=== PATIENT | male | born 1945 | race Caucasian/White ===

== ENCOUNTER 2016-05-24 08:49 | Emergency (ER) | payer OTHER ==
[2016-05-24 08:55] VITALS: TEMP 98.4
[2016-05-24] MEDS ORDERED: ONDANSETRON 4 MG/2 ML VIAL IVP ONE (08:56)
--- NOTE | 2016-05-24 09:08 | EDPHY ---
H & P Stated Complaint: NAUSEA, DIZZYNESS, R SIDED NUMBNESS STARTING LAST NIGHT AT 2300 Time Seen by Provider: 05/24/16 08:59 HPI/ROS: CHIEF COMPLAINT: Right-sided numbness, dizziness. HISTORY OF PRESENT ILLNESS: This is a 70-year-old male with a history of previous CVA presenting via EMS. Last night he and his flew in from [place] and drove to their hotel, arriving around 2230. On arrival he developed dizziness, nausea, and then right-sided numbness. The numbness is from the top of his head to the bottom of his foot. He denies weakness. His notes ataxic gait this morning when he tried to go to the bathroom. He does report these symptoms as being identical to his previous stroke. No fever, chills, chest pain, shortness of breath, palpitations, vomiting, diarrhea, urinary complaints. He is anticoagulated on Plavix and a daily baby aspirin. EMS administered 4mg PO Zofran en route. Patient reports a history of a basilar artery occlusion resulting stroke in 2013. At that time, they were told basilar artery was 100% occluded it was non operative. REVIEW OF SYSTEMS: Aside from elements discussed in the HPI, a comprehensive 10-point review of systems was reviewed and is negative. PAST MEDICAL HISTORY: Basilar artery occlusion, CVA, hypertension. SOCIAL HISTORY: Visiting from [place], former smoker. VITAL SIGNS: Reviewed by me, BP 184/101. GENERAL: Well-developed, well-nourished, uncomfortable-appearing. Complaining of dizziness and nausea while lying in bed. HEENT: Atraumatic. Eyes: PERRL, EOMI, nystagmus with lateral gaze, worse on left. No icterus. No injection. Mouth: moist mucous membranes. No erythema or lesions. Neck: No meningitis. Nontender to palpation. No adenopathy. Negative Kernig's. Negative Brudzinski's. No meningismus. LUNGS: Clear to auscultation bilaterally, no wheezes, rhonchi or rales. CARDIAC: Regular rate and rhythm, no rubs, murmurs or gallops. ABDOMEN: Soft, nontender, nondistended, bowel sounds normal. BACK: No CVA tenderness. EXTREMITIES: No trauma. No edema. Range of motion is normal throughout. NEURO: Alert and oriented, Motor strength 5 over 5 in all major muscle groups. Sensation intact to light touch. Normal [id number]. [id number] normal except for being slightly wobbly. SKIN: Warm and dry, no rash. PSYCHIATRIC: Normal mentation, no agitation. Portions of this note were transcribed by a medical record assistant. I personally performed a history, physical exam, medical decision making, and confirmed accuracy of information the transcribed note. Source: Patient Exam Limitations: No limitations - Personal History Current Tetanus/Diphtheria Vaccine: Unsure - Medical/Surgical History Hx Asthma: No Hx Chronic Respiratory Disease: No Hx Diabetes: No Hx Cardiac Disease: No Hx Renal Disease: No Hx Cirrhosis: No Hx Alcoholism: No Hx HIV/AIDS: No Hx Splenectomy or Spleen Trauma: No Other PMH: CVA (L SIDED NUMBESS DEFICIT), HTN - Social History Smoking Status: Never smoked Constitutional: Initial Vital Signs Temperature (C) 36.9 C 05/24/16 08:53 Heart Rate 56 L 05/24/16 08:53 Respiratory Rate 16 05/24/16 08:53 Blood Pressure 184/101 H 05/24/16 08:53 O2 Sat (%) 92 05/24/16 08:53 O2 Delivery Mode Nasal Cannula O2 (L/minute) 2 Allergies/Adverse Reactions: No Known Allergies Allergy (Unverified 05/24/16 08:53) Home Medications: Medication Instructions Recorded Baclofen 05/24/16 Benicar 05/24/16 Plavix 05/24/16 Medical Decision Making - Diagnostics EKG Interpretation: 12-LEAD EKG: Please see the full report in [facility]. My interpretation: Normal sinus rhythm Imaging: Study: CT/CTA of the head/ and neck. Indication: Neurological. Results: Impression: 1. Occluded right vertebral artery at the origin and skull base with minimal trickle of contrast in the mid portion of the vertebral artery extending from C4 to C2. 2. Occluded distal left vertebral artery at the ring of C1 and skull base. 3. Widely patent bilateral posterior communicating arteries feeding the patent basilar artery, bilateral posterior cerebral, bilateral superior cerebellar, bilateral inferior anterior cerebellar and posterior inferior cerebellar arteries. 4. Moderate (50-60% stenosis) origin right internal carotid artery due to circumferential calcified and noncalcified plaque. 5. Widely patent left carotid artery The study was read by the radiologist, Dr. Pena. I viewed the images myself on the PACS system. Results: CT scan of the head was obtained. I viewed the images independently on the PACS system. I discussed the results of the study with the radiologist. Impression: No intracranial hemorrhage. Please see the full radiology report. The study was read by the radiologist, Dr. Pena. I viewed the images myself on the PACS system. ED Course/Re-evaluation: An IV was established and labs ordered. EKG obtained. Head CT and CT angiogram head and neck ordered. Chest x-ray ordered. 4mg IV Zofran administered for continued nausea. 0920: Patient sent to CT for imaging. 1020: Head CT results conveyed to me by radiology. 1023: Consulted with Dr. Moore of [facility]. She recommends the patient be flown to [facility]. 1043: Reassessed patient. I discussed transfer to [facility] with the family. Dr. Moore of [facility] consulted with the patient via the stroke robot. [facility] was notified. Differential Diagnosis: Differential diagnoses the patient's presenting complaints was considered including but not limited to intracranial injury, TIA, ischemic cerebrovascular accident, hemorrhagic stroke, thrombotic stroke, dissection, hypoglycemia, complex migraine, metastases, tumor, seizure, or electrolyte abnormality Critical Care Time: I spent a total of 45 minutes of critical care time in obtaining history, performing a physical exam, bedside monitoring of interventions, collecting and interpreting tests and discussion with consultants but not including time spent performing procedures. - Data Points Laboratory Results: Laboratory Results 05/24/16 08:50 05/24/16 08:50 05/24/16 05/24/16 05/24/16 08:52 08:50 08:50 WBC RBC Hgb POC Hgb 17.3 gm/dL gm/dL (14.5-17.3) Hct POC Hct 51 % H % (42.8-50.6) MCV MCH MCHC RDW Plt Count MPV Neut % (Auto) Lymph % (Auto) [place] % (Auto) Eos % (Auto) Baso % (Auto) Nucleat RBC Rel Count Absolute Neuts (auto) Absolute Lymphs (auto) Absolute Monos (auto) Absolute Eos (auto) Absolute Basos (auto) Absolute Nucleated RBC Immature Gran % Immature Gran # PT 12.6 SEC SEC (12.0-15.0) INR 0.95 (0.83-1.16) POC Sodium 141 mEq/L mEq/L (134-144) Sodium 141 mEq/L mEq/L (134-144) POC Potassium 4.2 mEq/L mEq/L (3.3-5.0) Potassium 4.6 mEq/L mEq/L (3.5-5.2) POC Chloride 104 mEq/L mEq/L (96-108) Chloride 105 mEq/L mEq/L (97-110) Carbon Dioxide 27 mEq/l mEq/l (22-31) Anion Gap 9 mEq/L mEq/L (8-16) POC BUN 18 mg/dL mg/dL (7-23) BUN 17 mg/dL mg/dL (7-23) Creatinine 1.0 mg/dL mg/dL (0.7-1.3) POC Creatinine 1.0 mg/dL mg/dL (0.8-1.5) Estimated GFR > 60 Glucose 128 mg/dL H mg/dL (70-100) POC Glucose 131 mg/dL H mg/dL (70-100) Calcium 10.0 mg/dL mg/dL (8.5-10.4) Troponin I < 0.012 ng/mL ng/mL (0-0.034) 05/24/16 08:50 WBC 6.78 10^3/uL 10^3/uL (3.80-9.50) RBC 5.64 10^6/uL 10^6/uL (4.40-6.38) Hgb 17.5 g/dL g/dL (13.7-17.5) POC Hgb Hct 50.3 % % (40.0-51.0) POC Hct MCV 89.2 fL fL (81.5-99.8) MCH 31.0 pg pg (27.9-34.1) MCHC 34.8 g/dL g/dL (32.4-36.7) RDW 13.0 % % (11.5-15.2) Plt Count 152 10^3/uL 10^3/uL (150-400) MPV 10.1 fL fL (8.7-11.7) Neut % (Auto) 71.7 % % (39.3-74.2) Lymph % (Auto) 20.4 % % (15.0-45.0) [place] % (Auto) 6.3 % % (4.5-13.0) Eos % (Auto) 0.9 % % (0.6-7.6) Baso % (Auto) 0.4 % % (0.3-1.7) Nucleat RBC Rel Count 0.0 % % (0.0-0.2) Absolute Neuts (auto) 4.86 10^3/uL 10^3/uL (1.70-6.50) Absolute Lymphs (auto) 1.38 10^3/uL 10^3/uL (1.00-3.00) Absolute Monos (auto) 0.43 10^3/uL 10^3/uL (0.30-0.80) Absolute Eos (auto) 0.06 10^3/uL 10^3/uL (0.03-0.40) Absolute Basos (auto) 0.03 10^3/uL 10^3/uL (0.02-0.10) Absolute Nucleated RBC 0.00 10^3/uL 10^3/uL (0-0.01) Immature Gran % 0.3 % % (0.0-1.1) Immature Gran # 0.02 10^3/uL 10^3/uL (0.00-0.10) PT INR POC Sodium Sodium POC Potassium Potassium POC Chloride Chloride Carbon Dioxide Anion Gap POC BUN BUN Creatinine POC Creatinine Estimated GFR Glucose POC Glucose Calcium Troponin I Medications Given: Discontinued Medications Lorazepam (Ativan Injection) 1 mg IVP EDNOW ONE Stop: 05/24/16 09:36 Last Admin: 05/24/16 09:45 Dose: 1 mg Ondansetron HCl (Zofran) 4 mg IVP EDNOW ONE Stop: 05/24/16 08:57 Last Admin: 05/24/16 09:01 Dose: 4 mg Point of Care Test Results: 05/24/16 08:52 POC Sodium 141 POC Potassium 4.2 POC Chloride 104 POC BUN 18 POC Creatinine 1.0 POC Glucose 131 H Departure - Departure Disposition: Acute Care Hospital Not [facility] Clinical Impression: CVA (cerebral vascular accident) Qualifiers: CVA mechanism: thrombosis Precerebral and cerebral artery: vertebral artery Laterality of affected vessel: left Qualified Code(s): 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 I personally performed a history, physical exam, medical decision making, and confirmed accuracy of information the transcribed note.
[2016-05-24] MEDS ORDERED: IOPAMIDOL (ISOVUE 370) 100 ML BTL IV ONE (09:16)
[2016-05-24 09:18] LABS: % IMMATURE GRANULYOCYTES 0.3 % (0.0-1.1); ABSOLUTE IMMATURE GRANULOCYTES 0.02 10^3/uL (0.00-0.10); ADD DIFF? NO; ADD MORPH? NO; ADD SCAN? NO; ATYPICAL LYMPHOCYTE FLAG 0 (0-99); FRAGMENT RBC FLAG 0 (0-99); HEMATOCRIT 50.3 % (40.0-51.0); HEMOGLOBIN 17.5 g/dL (13.7-17.5); LEFT SHIFT FLG 0 (0-99); LIPEMIA HEMOLYSIS FLAG 90 (0-99); MEAN CELL HEMOGLOBIN CONCENTR. 34.8 g/dL (32.4-36.7); MEAN CELL VOLUME 89.2 fL (81.5-99.8); MEAN PLATELET VOLUME 10.1 fL (8.7-11.7); PLATELET CLUMPS FLAG 10 (0-99); PLATELET COUNT 152 10^3/uL (150-400); RED BLOOD CELL COUNT 5.64 10^6/uL (4.40-6.38)
--- NOTE | 2016-05-24 09:25 | CPEKG ---
Heart Rate: 56 RR Interval: 1071 P-R Interval: 184 QRSD Interval: 94 QT Interval: 436 QTC Interval: 421 P [place]: 40 QRS [place]: 30 T Wave [place]: 79 EKG Severity - NORMAL ECG - EKG Impression: SINUS RHYTHM Electronically Signed By: Christie Cisse 24-May-2016 17:53:00
[2016-05-24 09:31] LABS: ANION GAP 9 mEq/L (8-16); CARBON DIOXIDE 27 mEq/l (22-31); CHLORIDE 105 mEq/L (97-110); GLOMERULAR FILTRATION RATE > 60; GLUCOSE 128 mg/dL (70-100); POTASSIUM 4.6 mEq/L (3.5-5.2); SODIUM 141 mEq/L (134-144)
[2016-05-24] MEDS ORDERED: LORazepam 2 MG/ML INJ IVP ONE (09:35)
[2016-05-24 09:40] LABS: INR 0.95 (0.83-1.16); PROTIME(PATIENT) 12.6 SEC (12.0-15.0)
[2016-05-24 09:43] LABS: TROPONIN I < 0.012 ng/mL (0-0.034)
[2016-05-24 10:34] VITALS: PULSE 59; RESP 18
[2016-05-24 11:22] VITALS: BP 158/79; O2SAT 96
== END 2016-05-24 11:21 | disposition short-term general hospital (02) ==
DX: I63.012 Cerebral infarction due to thrombosis of left vertebral artery (principal); I10 Essential (primary) hypertension; Z86.73 Personal history of transient ischemic attack (TIA), and cerebral infarction without residual deficits; Z87.891 Personal history of nicotine dependence; Z79.01 Long term (current) use of anticoagulants
CPT/HCPCS: 70450; 70496; 70498; 71020; 93005; 96374; 96375; 99291; J2405; Q9967; 82947-QW